=== PATIENT | female | born 1960 | race Caucasian/White ===

== ENCOUNTER → 2016-12-26 | Outpatient (CLI) | payer OTHER | LOC: BMCIMAGING 10:42 | DX: Z12.31 Encounter for screening mammogram for malignant neoplasm of breast (principal) | CPT/HCPCS: G0202 ==

== ENCOUNTER → 2018-01-28 | Outpatient (CLI) | payer OTHER | LOC: CIMAGING 12:40 | PROVIDERS: ATTEND Podiatrist | DX: M79.671 Pain in right foot (principal) | CPT/HCPCS: 73630-PO ==